=== PATIENT | female | born 1980 | race Caucasian/White ===

== ENCOUNTER → 2016-06-27 | Day surgery (SDC) | payer OTHER ==
--- NOTE | 2016-06-26 17:00 | History & Physical Pre-Op ---
General Information and HPI History of Present Illness: 36-year-old 1 para 2 with impacted On in the left upper extremity here for excision. Allergies/Medications Allergies: Coded Allergies: NO KNOWN ALLERGIES (08/18/15) Home Med list Clonazepam 1 MG TABLET 1 TAB PO QPMP PRN SLEEP (Reported) Glimepiride 2 MG TABLET 1 TAB PO DAILY DIABETES (Reported) Lisinopril 5 MG TABLET 1 TAB PO DAILY BP (Reported) Metformin HCl 500 MG TABLET 1,000 TAB PO DAILY DIABETES (Reported) Ondansetron (Zofran Odt) 4 MG TAB.RAPDIS 1 TAB PO Q6 PRN NAUSEA Sertraline HCl 100 MG TABLET 2 TAB PO DAILY MENTAL HEALTH (Reported) Sitagliptin Phosphate (Januvia) 100 MG TABLET 1 TAB PO DAILY DIABETES ( Reported) Past History Medical History Neurological: NONE EENT: NONE Cardiovascular: hypertension Respiratory: asthma Gastrointestinal: sbo HERNIA REPAIR Hepatic: NONE Renal: nephrolithiasis Musculoskeletal: NONE Psychiatric: depression, OCD Endocrine: diabetes Blood Disorders: NONE Cancer(s): NONE BUSINESS BANKING OFFICER/Reproductive: NONE History of MRSA: No History of VRE: No History of CDIFF: No Surgical History Pertinent Surgical History: hernia repair-incisional, hernia repair-umbilical, section two hernia repairs Past Family/Social History Family History Relations & Conditions if any FATHER FH: Crohn's disease FH: diverticulitis Psychosocial History Services at Home None Review of Systems Review of Systems Constitutional: Reports: no symptoms. EENTM: Reports: no symptoms. Cardiovascular: Reports: no symptoms. Respiratory: Reports: no symptoms. GI: Reports: no symptoms. Genitourinary: Reports: no symptoms. Musculoskeletal: Reports: no symptoms. Skin: Reports: no symptoms. Neurological/Psychological: Reports: no symptoms. Hematologic/Endocrine: Reports: no symptoms. Immunologic/Allergic: Reports: no symptoms. All Other Systems: Reviewed and Negative Exam & Diagnostic Data Last 24 Hrs of Vital Signs/I&O Vital signs stable Physical Exam: Obese white female HEENT: Normocephalic atraumatic Chest: Clear to auscultation bilaterally Cardiovascular: Normal S1 Abdomen: See soft Extremities no clubbing cyanosis or edema left upper extremity with Palpable Assessment/Plan Assessment/Plan: Impacted nexplanon Excision As Ranked By This Provider Problem List: 1. Encounter for removal of subdermal contraceptive implant
[~2016-06-27] VITALS: Ht 162.6 cm; Wt 129.3 kg
[~2016-06-27] MED LIST: CLONAZEPAM1 M2 PO; FLEXERIL10 MG PO; GLIMEPIRIDE1 M1 PO; GLIMEPIRIDE2 MG PO; HYDROCODONE/ACE1 TA1 PO; JANUVIA100 M1 PO; LISINOPRIL5 M1 PO; LORAZEPAM0.5 MG PO; METFORMIN HCL500 M3 PO; PHENTERMINE H37.5 M1 PO; SERTRALINE HCL100 MG PO; SERTRALINE HYDR50 MG PO; ZOFRAN ODT4 M1 PO
--- NOTE | 2016-07-01 13:09 | Operative Report ---
Operative/Inv Procedure Report Surgery Date: 06/27/16 Name of Procedure: Excision of impacted contraceptive implant Pre-Operative Diagnosis: Impacted contraceptive implant Post-Operative Diagnosis: Same Estimated Blood Loss: scant Surgeon/Mystery Shopper: LETICIA MARCIAL MD Anesthesia: local monitored anesthesi Operative/Procedure Note Note: The patient was brought to the operating room placed on the OR table in the dorsal supine position. With the left arm board. She was given adequate anesthesia and prepped and draped in the usual sterile fashion. The Nexplanon contraceptive implant was easily palpable in the left upper extremity. It was injected with 1% lidocaine with epinephrine and a stab incision was made with a #11 blade. Oozing manual palpation and mosquito forceps the tip of the Nexplanon implant was grasped and the and the fibrous capsules surrounding it was excised. The implant was then removed intact. Sent to pathology. Consents recovery in good condition. All needle, sponge, and instrument counts correct at the end of the procedure 2.
== END ==
LOC: STS 03:47
DX: Z30.49 Encounter for surveillance of other contraceptives (principal); I10 Essential (primary) hypertension; E11.9 Type 2 diabetes mellitus without complications; Z79.84 Long term (current) use of oral hypoglycemic drugs
CPT/HCPCS: 81025; J0690; J1885; J2250

== ENCOUNTER 2017-08-08 01:20 | Inpatient (IN) | payer OTHER ==
[~2017-08-08] VITALS: Ht 162.6 cm; Wt 127.0 kg
[~2017-08-08 01:20] MED LIST changes: +BIOTIN5000 MC1 PO; +LEXAPRO20 M1 PO; +MONTELUKAST SOD10 M1 PO; +PROAIR HFA8.5 GM INH; +PROTONIX40 M3 PO
--- NOTE | 2017-08-08 11:04 | Operative Report ---
Operative/Inv Procedure Report Surgery Date: 08/08/17 Name of Procedure: Morbid obesity Pre-Operative Diagnosis: Morbid obesity Post-Operative Diagnosis: Same Estimated Blood Loss: less than 20 mL Surgeon/Print Inspector: Rina SILVEIRA,Tommy RON Anesthesia: general endotracheal tube, block Monitors: na IV Fluids: LR Implants: none Urine Output: na Drains: none Specimens: portion of stomach Complications: none Condition: stable Operative Indication: see admission H and P Operative/Procedure Note Note: After informed consent and proper identification the patient was taken the operating room placed on the operating room in the supine position, a timeout was performed. Sequential compression devices were applied to both lower extremities The patient underwent a general endotracheal anesthetic. Anesthesia performed a KETTY Block the abdomen was then prepped and draped in normal sterile fashion. We entered the abdominal cavity through a 1 cm incision left upper quadrant using a 5 mm [employer] Optiview trocar and a 0 Stortz 5 mm laparoscope upon entering the abdomen insufflated with 14 mm of CO2 pressure we then placed a 5 mm trocar in the left subcostal margin we then exchanged the 5 mm entrance trocar to a 12 mm trocar and the use a [address] it in the right subcostal margin. We placed a 15 mm trocar in the right midabdomen just lateral to the umbilicus. We placed a Tavia liver retractor in the upper midline to retract the left lobe of the liver. The liver was larger than expected for a patient who should be on her preop diet but it was smooth and glistening and it retracted nicely out of the way with a Tavia retractor was no evidence of a hiatal hernia anesthesia decompress the stomach with an orogastric tube nicely and then remove the orogastric tube for us using a ultrasonic scalpel we divided the vasculature along the greater curvature of the stomach opposite the angularis all the way up to the angle his the retrogastric space had very few adhesions that were taken down where careful not to injure the pancreas or the splenic vessels which were very well visualized. Next we had anesthesia place a 38 Sami bougie and using this as a guide we used a stapler to perform the sleeve starting approximately 6 cm from the pylorus opposite the angularis we used a completely and hand held stapler with a 60 cm black load cartridges seam guard for the first firing the we then fired an additional 60 cm black load cartridges seam guard followed by 3 purple 60 cm cartridges with seam guard the remnant stomach was then removed in a Covidean 15 mm Endo Catch bag through the 15 mm port. The liver retractor and bougie were removed. No sponges were placed in the abdominal cavity. Sponge and instrument counts were correct all trochars were removed the portion of stomach was sent to pathology specimen skin incisions were closed with 4-0 Monocryl subcuticular stitches and skin glue patient tolerated the procedure without complications was taken the recovery room in stable condition Findings: fatty liver no evidence of hiatal hernia Discharge Disposition: PACU
--- NOTE | 2017-08-08 13:38 | PN- Bariatrics ---
Subjective Subjective: POC No events noted in PACU. Patient's main complaint is nausea, no emesis. Denies any chest pain or SOB. Admits to mild gas pain. Has voided since surgery. Is currently OOB to chair. Objective Vital Signs and I&Os Afebrile, VSS. Physical Exam: Afebrile, VSS. Cardiac: RRR Pulmonary: CTAB Abdominal: Incisions c/d/i, skin glue in place. + hypoactive BS, soft, obese, minimal incisional tenderness to palpation. Assessment/Plan Assessment/Plan 37 y/o female w/ PMHx of HTN and DM POD # 0 s/p laparoscopic sleeve gastrectomy, stable. - Bariatric stage 1 diet - Pain control and antiemetics prn - Encourage OOB/IS/ambulation - DVT ppx - ALPs, HSQ - NPO after midnight, will evaluate in am if needs UGI, if not will resume Olaf stage 1 in am Core Measures Venous Thromboembolism VTE Risk Factors Surgery No Mechanical VTE Prophylaxis d/t N/A MechProphylax Ordered No VTE Pharm Prophylaxis d/t NA PharmProphylax ordered
[2017-08-08 17:02] VITALS: BP 150/110
[2017-08-08 21:21] VITALS: BP 152/94
[2017-08-09 06:34] VITALS: BP 150/84
--- NOTE | 2017-08-09 08:02 | PN- Bariatrics ---
Subjective Subjective: PONV reported, has resolved. Pt feeling hunger presently. Has been oob ambulating. Denies chest pain, sob, difficulty breathing. Has been voiding. Was npo for possible upper gi, is requesting water. Objective Vital Signs and I&Os Vital Signs Date Time Temp Pulse Resp B/P B/P Pulse O2 O2 Flow FiO2 Mean Ox Delivery Rate 08/09 0634 98.3 105 20 150/84 98 CPAP 08/09 0000 CPAP 08/08 2121 98.3 99 18 152/94 96 BIPAP 08/08 1821 106 150/110 08/08 1800 95 Room Air 08/08 1702 98.3 106 18 150/110 98 Room Air 08/08 1400 94 Room Air Intake & Output 08/09 0800 08/09 0000 08/08 1600 08/08 0800 08/08 0000 08/07 1600 Intake Total 800 1180 710 Output Total 3400 750 870 Balance -2600 430 -160 Intake, IV 800 1000 350 Intake, Oral 0 180 360 Number 0 0 Bowel Movements Output, 20 Emesis Output, Urine 3400 750 850 Patient 280 lb Weight Weight Reported by Patient Measurement Method Physical Exam: Gen: AAO x3, no acute distress Card: RRR, s1s2 Pulm: CTA bialterally, non-labored respiratory effort Redness noted under bialteral eyes, chest and back. Abd: non-tender, softly distended, incisions intact with demabond, no surrounding erythema Extremities: moves all extremities, distal sensation intact. Bilateral calves soft and non-tender Assessment/Plan Assessment/Plan POD 1 s/p lap sleeve, some ponv, resolved -proceed with bariatric stage one this am -follow up cbc -if not tolerating diet, or if cbc anemic, will order upper gi -OOB, ambulation encouraged -Hep sq for dvt ppx, alps -benadryl x1 dose for redness -Will dc iv fluids when tolerating adequate po Core Measures Venous Thromboembolism VTE Risk Factors Surgery No Mechanical VTE Prophylaxis d/t N/A MechProphylax Ordered No VTE Pharm Prophylaxis d/t NA PharmProphylax ordered
[2017-08-09 08:17] LABS: ABSOLUTE BASOPHIL COUNT 0 /CUMM (0.0-0.2); ABSOLUTE EOSINOPHIL COUNT 0 /CUMM (0.0-0.7); ABSOLUTE GRANULOCYTE CT 9.3 /CUMM (1.4-6.5); ABSOLUTE LYMPH COUNT 1.7 /CUMM (1.2-3.4); ABSOLUTE MONOCYTE COUNT 0.8 /CUMM (0.10-0.60); BASOPHIL % 0.2 % (0.0-2.0); EOSINOPHIL % 0.2 % (0-5); GRANULOCYTE % 77.9 % (42.2-75.2); HEMATOCRIT 39.4 % (37-47); MEAN CORPUSCULAR HGB 26.7 PG (27.0-31.0); MEAN CORPUSCULAR HGB CONC 33.8 G/DL (33.0-37.0); MEAN CORPUSCULAR VOLUME 78.9 FL (81.0-99.0); MEAN PLATELET VOLUME 9.1 FL (7.4-10.4); PLATELET COUNT 267 /CUMM (130-400); RBC DISTRIBUTION WIDTH 14.4 % (11.5-14.5); RED BLOOD CELL CT 4.99 /CUMM (4.20-5.40); WHITE BLOOD CELL COUNT 11.9 /CUMM (4.8-10.8)
--- NOTE | 2017-08-09 11:22 | Surg Short-stay <48hrs Dis Sum ---
Visit Information Visit Dates Admission Date: 08/08/17 Discharge Date: 08/10/17 Surgical Short Stay DC Summary Admission Diagnosis: Morbid obesity Final Diagnosis: same as above, s/p laparoscopic sleeve gastrectomy (08/08/17) Procedure(s): Laparoscopic sleeve gastrectomy (08/08/17) Summary/Significant Findings: Electively scheduled laparoscopic sleeve gastrectomy by Dr.Craig Flynn on . Started on a stage 1 diet post-operatively. She experiened post-operative nausea, and small bloody emesis that visually looked consistent with expected old blood likely from staple line intra-luminal bleeding that has likely stopped. She has had stable serial labs, without symptoms of anemia. She has been given zofran periodically for nausea. An upper GI study was done on post-op day#1 to rule out leak and obstruction. Otherwise a red sunburn-similar rash was noted on her upper torso and arms on post-op day#1, which did not improve after benadryl. After reviewing her medications administered with the inpatient pharmacist, it was felt to be most likely secondary to the iv morphine administered the night before. At that time, the morphine was discontinued. Hydrocortisone cream and a one time dose of decadron iv was ordered following unimprovement with bendaryl. Prior to discharge home, she proved to be tolerating stage 1 diet and pain controlled, with improvement / resolution of her truncal rash. Condition at Discharge: stable Discharge Disposition: home or self care Discharge instructions provided to patient/family: Yes Post discharge follow-up plan: one week follow up with Dr.Craig Flnyn Copies to: Mireille SILVEIRA,Radha Melendrez
[2017-08-09] MEDS ORDERED: PERCOCET 5-3251 EACH PO (11:39)
[2017-08-09] MEDS ORDERED: PROTONIX40 M3 PO (11:39)
--- NOTE | 2017-08-09 11:49 | Patient Discharge Instructions ---
Discharge Instructions General Discharge Information You were seen/treated for: Morbid obesity You had these procedures: laparoscopic sleeve gastrectomy (08/09/17) Watch for these problems: fever>101.3, increased pain, redness/swelling/drainage, shortness of breath, chest pains, dizziness Daily wet to dry dressings: Yes No bath, but you may shower: Yes Other wound care: ok to remove outer dressings. leave white steri strips in place. keep incisions clean & dry. Diet Continue normal diet: No Recommended Diet: Bariatric Additional DIET Information: weekly bariatric stage diet advancements as directed, as tolerated Activity Full Activity/No Limits: No Activity Self Limited: Yes Pounds, do NOT lift more than: 10 Other activity limits: no heavy lifting. no strenuous activity. Additional ACTIVITY Info: walk frequently Acute Coronary Syndrome Inclusion Criteria At DC or during hospital stay patient has or had the following: ACS DIAGNOSIS No Discharge Core Measures Meds if any: Prescribed or Continued at Discharge Meds if any: NOT Prescribed or Continued at Discharge Congestive Heart Failure Inclusion Criteria At DC or during hospital stay patient has or had the following: CHF DIAGNOSIS No Discharge Core Measures Meds if any: Prescribed or Continued at Discharge Meds if any: NOT Prescribed or Continued at Discharge Cerebrovascular accident Inclusion Criteria At DC or during hospital stay patient has or had the following: CVA/TIA Diagnosis No Discharge Core Measures Meds if any: Prescribed or Continued at Discharge Meds if any: NOT Prescribed or Continued at Discharge Venous thromboembolism Inclusion Criteria VTE Diagnosis No VTE Type NONE VTE Confirmed by (Test) NONE Discharge Core Measures - Per Current guidelines, there needs to be overlap - treatment for the first 5 days of Warfarin therapy. - If discharged on Warfarin prior to 5 days of - overlap therapy, the patient will need to be - assessed for post discharge needs including - *Post discharge parental anticoagulation - *Warfarin and/or parental anticoagulation education - *Follow up date to check INR post discharge At least 5 days overlap therapy as Inpatient No Meds if any: Prescribed or Continued at Discharge Note: Overlap Therapy is Warfarin and Anticoagulant Meds if any: NOT Prescribed or Continued at Discharge
--- NOTE | 2017-08-09 13:48 | RADIOLOGY REPORT ---
EXAMINATION: FL UPPER GI SERIES CLINICAL INFORMATION: Status post sleeve gastrectomy with postoperative vomiting. Evaluate for bowel obstruction or contrast leakage. COMPARISON: None TECHNIQUE: Upper gastrointestinal series was performed with oral intake of 30 mL of Gastroview contrast material. The patient ingested low density barium without difficulty and was evaluated in the upright and recumbent positions. FLUOROSCOPY TIME: 19 seconds NUMBER OF IMAGES: 11 images FINDINGS: After oral intake of 30 mL of Gastroview contrast material, there was no delay in passage of contrast through the esophagus and into the stomach, which had the expected configuration after sleeve gastrectomy. Also, there was no significant delay in passage of contrast into the normal, nondilated duodenum. No evidence of a fixed filling defect, mucosal thickening, upper gastrointestinal tract obstruction or contrast leakage. IMPRESSION: Normal postoperative appearance after sleeve gastrectomy. No evidence of contrast leakage, gastric outlet obstruction or proximal small bowel obstruction.
[2017-08-09 14:40] VITALS: BP 132/82
[2017-08-09 21:47] VITALS: BP 152/90
[2017-08-10 06:52] VITALS: BP 138/78
[2017-08-10 09:15] LABS: ABSOLUTE BASOPHIL COUNT 0 /CUMM (0.0-0.2); ABSOLUTE EOSINOPHIL COUNT 0.1 /CUMM (0.0-0.7); ABSOLUTE GRANULOCYTE CT 7.3 /CUMM (1.4-6.5); ABSOLUTE LYMPH COUNT 2.1 /CUMM (1.2-3.4); ABSOLUTE MONOCYTE COUNT 0.7 /CUMM (0.10-0.60); BASOPHIL % 0.3 % (0.0-2.0); EOSINOPHIL % 0.5 % (0-5); GRANULOCYTE % 71.9 % (42.2-75.2); HEMATOCRIT 37.8 % (37-47); MEAN CORPUSCULAR HGB 26.6 PG (27.0-31.0); MEAN CORPUSCULAR HGB CONC 34.1 G/DL (33.0-37.0); MEAN PLATELET VOLUME 8.7 FL (7.4-10.4); PLATELET COUNT 262 /CUMM (130-400); RBC DISTRIBUTION WIDTH 14.7 % (11.5-14.5); RED BLOOD CELL CT 4.85 /CUMM (4.20-5.40); WHITE BLOOD CELL COUNT 10.2 /CUMM (4.8-10.8)
--- NOTE | 2017-08-10 11:48 | PN- General Surgery ---
Subjective Subjective: E7-year-old female is postop day 2 of laparoscopic sleeve procedure. She attempted to have breakfast this morning stage I and had dry heaves and vomited. She denies any chest pain shortness of breath and her abdominal pain is controlled. No BMs yet Objective Vital Signs and I&Os Vital Signs Date Time Temp Pulse Resp B/P B/P Pulse O2 O2 Flow FiO2 Mean Ox Delivery Rate 08/10 0800 100 Room Air 08/10 0652 99.0 68 20 138/78 100 08/10 0600 Room Air 08/09 2200 96 Room Air 08/09 2147 98.6 104 20 152/90 96 Room Air 08/09 1440 99.2 90 18 132/82 100 08/09 1400 98 Room Air Intake & Output 08/10 1600 08/10 0800 08/10 0000 08/09 1600 08/09 0800 08/09 0000 Intake Total 690 6397 536 1433 1620 Output Total 715 1201 2450 3400 1270 Balance -25 -121 -1630 -2370 350 Intake, IV 600 940 456 9040 1200 Intake, Oral 90 380 120 30 420 Number 1 2 0 Bowel Movements Output, 15 150 20 Emesis Output, Stool 1 400 Output, Urine 700 1200 1900 3400 1250 Physical Exam: Physical examination she is alert and oriented comfortable currently lying in bed Is clear auscultation symmetric without rales rhonchi or wheeze Regular rate rhythm without murmurs rubs gallops Diminishes rounded but soft with positive bowel sounds portal sites are clean dry and intact without evidence of drainage. Legs are without edema and calves are soft Assessment/Plan Assessment/Plan Assessment and plan postop day #2 after laparoscopic sleeve procedure for weight loss patient has had bouts of nausea and vomiting vomiting this morning. Had an upper GI and this is normal. Plan is to discharge her this evening after she has had more by mouth intake. We will evaluate her at that point and if she feels well she will be able to go home Admission Lab Results I reviewed the following labs: Laboratory Tests 08/11 831 Hematology CBC w Diff NO MAN DIFF REQ WBC (4.8 - 10.8 /CUMM) 10.2 RBC (4.20 - 5.40 /CUMM) 4.85 Hgb (12.0 - 16.0 G/DL) 12.9 Hct (37 - 47 %) 37.8 MCV (81.0 - 99.0 FL) 78.0 L MCH (27.0 - 31.0 PG) 26.6 L MCHC (33.0 - 37.0 G/DL) 34.1 RDW (11.5 - 14.5 %) 14.7 H Plt Count (130 - 400 /CUMM) 262 MPV (7.4 - 10.4 FL) 8.7 Gran % (42.2 - 75.2 %) 71.9 Lymphocytes % (20.5 - 51.1 %) 20.4 L Monocytes % (1.7 - 9.3 %) 6.9 Eosinophils % (0 - 5 %) 0.5 Basophils % (0.0 - 2.0 %) 0.3 Absolute Granulocytes (1.4 - 6.5 /CUMM) 7.3 H Absolute Lymphocytes (1.2 - 3.4 /CUMM) 2.1 Absolute Monocytes (0.10 - 0.60 /CUMM) 0.7 H Absolute Eosinophils (0.0 - 0.7 /CUMM) 0.1 Absolute Basophils (0.0 - 0.2 /CUMM) 0 Core Measures Venous Thromboembolism VTE Risk Factors Surgery No Mechanical VTE Prophylaxis d/t N/A MechProphylax Ordered No VTE Pharm Prophylaxis d/t NA PharmProphylax ordered
[2017-08-10 11:55] VITALS: BP 152/90
[2017-08-10 14:42] VITALS: BP 132/90
== END 2017-08-10 19:30 | DRG 403 ==
LOC: 2NB 01:20 → SDA 01:20 → ENRESERV 12:01 → ENTRNSPT 12:21 → EDTRNSPT 12:27 → EDTRNSPTSTS 12:27 → 2NB 12:38 → CMPTRNSPT 12:43 → 2NB 12:45 → ENTRNSPT 08-10 18:55 → ENPENDDIS 08-10 18:55 → EDTRNSPTSTS 08-10 19:19 → EDTRNSPT 08-10 19:19 → CMPTRNSPT 08-10 19:29 → 2NB 08-10 19:30 → CMPTRNSPT 08-10 19:42
PROVIDERS: Physician Assistant; Physician Assistant Surgical
PROC: 0DB64Z3 Excision of Stomach, Percutaneous Endoscopic Approach, Vertical (ICD-10-PCS; principal; 2017-08-08)
PROC: 3E0T3BZ Introduction of Anesthetic Agent into Peripheral Nerves and Plexi, Percutaneous Approach (ICD-10-PCS; 2017-08-08)
DX: E66.01 Morbid (severe) obesity due to excess calories (principal); Z68.42 Body mass index [BMI] 45.0-49.9, adult; E11.9 Type 2 diabetes mellitus without complications; Z79.4 Long term (current) use of insulin; Z79.84 Long term (current) use of oral hypoglycemic drugs; J45.909 Unspecified asthma, uncomplicated; Z87.442 Personal history of urinary calculi; K21.9 Gastro-esophageal reflux disease without esophagitis; G47.33 Obstructive sleep apnea (adult) (pediatric); I10 Essential (primary) hypertension; F32.9 Major depressive disorder, single episode, unspecified
CPT/HCPCS: 2NBP; 36415; 74240; 81025; C9399; J0131; J0690; J1100; J1200; J1630; J1644; J1815; J2405; J3250; J3490

== ENCOUNTER 2017-10-11 22:27 | Inpatient (IN) | payer OTHER ==
[~2017-10-11] VITALS: Ht 162.6 cm; Wt 112.0 kg
[~2017-10-11 22:27] MED LIST changes: +PERCOCET 5-3251 EACH PO
[2017-10-11 23:12] LABS: ABSOLUTE BASOPHIL COUNT 0 /CUMM (0.0-0.2); ABSOLUTE EOSINOPHIL COUNT 0.2 /CUMM (0.0-0.7); ABSOLUTE GRANULOCYTE CT 4.5 /CUMM (1.4-6.5); ABSOLUTE MONOCYTE COUNT 0.6 /CUMM (0.10-0.60); BASOPHIL % 0.5 % (0.0-2.0); EOSINOPHIL % 2.6 % (0-5); GRANULOCYTE % 53.8 % (42.2-75.2); HEMATOCRIT 39.8 % (37-47); MEAN CORPUSCULAR HGB 26.4 PG (27.0-31.0); MEAN CORPUSCULAR HGB CONC 33.6 G/DL (33.0-37.0); MEAN CORPUSCULAR VOLUME 78.7 FL (81.0-99.0); MEAN PLATELET VOLUME 10.2 FL (7.4-10.4); PLATELET COUNT 178 /CUMM (130-400); RBC DISTRIBUTION WIDTH 13.9 % (11.5-14.5); RED BLOOD CELL CT 5.05 /CUMM (4.20-5.40); WHITE BLOOD CELL COUNT 8.3 /CUMM (4.8-10.8)
--- NOTE | 2017-10-11 23:21 | ED GI/GU/ABDOMINAL COMPLAINT ---
History of Present Illness General Chief Complaint: Abdominal Pain/Flank Pain Stated Complaint: PAIN IN ABD, GASTRIC SLEEVE SURG X4 MONTHS AGO Source: patient Exam Limitations: no limitations Vital Signs & Intake/Output Vital Signs & Intake/Output Vital Signs Date Time Temp Pulse Resp B/P B/P Pulse O2 O2 Flow FiO2 Mean Ox Delivery Rate 10/12 0151 88 20 124/68 98 Room Air 10/11 2231 96.8 74 20 165/94 98 Allergies Coded Allergies: No Known Allergies (07/16/17) Reconcile Medications Albuterol Sulfate (Proair Hfa) 90 MCG HFA.AER.AD 2 PUF INH Q4-6 PRN PRN ASTHMA (Reported) Biotin 5,000 MCG TAB.SUBL 1 TAB PO DAILY PREVENT HAIR LOSS (Reported) Escitalopram Oxalate (Lexapro) 20 MG TABLET 1 TAB PO DAILY ANXIETY (Reported) Lisinopril 5 MG TABLET 1 TAB PO DAILY BP (Reported) Montelukast Sodium 10 MG TABLET 1 TAB PO DAILY ALLERGIES (Reported) Oxycodone HCl/Acetaminophen (Percocet 5-325 MG Tablet) 5 MG-325 MG TABLET 1-2 TAB PO Q4-6 PRN PRN pain control tylenol alternatively. do not combine with percocet. Pantoprazole Sodium (Protonix) 40 MG TABLET.DR 1 TAB PO DAILY ulcer risk reduction Triage Note: PER PT ABD "BURNING " ALL DAY GASTRIC SLEEVE 8 WEEKS AGO ALSO DIARRHEA ALL DAY NO PAIN NO VOMITING NO FEVERS Triage Nurses Notes Reviewed? yes ? N Is pt currently ? No Onset: Gradual Duration: hour(s): Timing: single episode today Quality/Severity: burning, moderate Severity Numbers: 7 Location: epigastric HPI: 37-year-old female with history of gastric sleeve procedure for months ago with Dr. Waterman presents to emergency department complaining of epigastric burning pain beginning 2 hours prior to arrival. Patient states that she had been eating Portuguese food and began experiencing epigastric burning pain after she finished eating. Pain has been gradually increasing, currently described as 7/ 10, constant. Pain is associated with nausea and patient is having dry heaving here in the emergency department. Patient has also had 3 episodes of diarrhea since being here in the emergency department. Patient has a history of 2 prior small bowel obstructions. Patient denies fevers, chills, urinary symptoms. (Sonia RON,Jyoti Padmini) Past History Travel History Traveled to [place] past 21 day No Medical History Any Pertinent Medical History? see below for history Neurological: NONE EENT: NONE Cardiovascular: hypertension Respiratory: asthma Gastrointestinal: sbo HERNIA REPAIR Hepatic: NONE Renal: nephrolithiasis Musculoskeletal: NONE Psychiatric: depression, OCD Endocrine: diabetes Blood Disorders: NONE Cancer(s): NONE PRECISION DYER/Reproductive: NONE History of MRSA: No History of VRE: No History of CDIFF: No Influenza Vaccine: 02/24/17 Surgical History Surgical History: hernia repair-incisional, hernia repair-umbilical, section two hernia repairs Psychosocial History Who do you live with Significant Other Services at Home None What is your primary language Icelandic Tobacco Use: Never used Family History Family History, If Any: FATHER FH: Crohn's disease FH: diverticulitis Hx Contributory? No (Jyoti Ngo) Review of Systems Review of Systems Constitutional: Reports: no symptoms. EENTM: Reports: no symptoms. Respiratory: Reports: no symptoms. Cardiovascular: Reports: no symptoms. GI: Reports: see HPI. Genitourinary: Reports: no symptoms. Musculoskeletal: Reports: no symptoms. Skin: Reports: no symptoms. Neurological/Psychological: Reports: no symptoms. Hematologic/Endocrine: Reports: no symptoms. Immunologic/Allergic: Reports: no symptoms. All Other Systems: Reviewed and Negative (Jyoti Ngo) Physical Exam Physical Exam General Appearance: well developed/nourished, no apparent distress, alert, awake , obese Head: atraumatic, normal appearance Eyes: Bilateral: normal appearance. Ears, Nose, Throat, Mouth: hearing grossly normal Neck: normal inspection, supple, full range of motion Respiratory: normal breath sounds, no respiratory distress, lungs clear Cardiovascular: regular rate/rhythm Gastrointestinal: hypoactive bowel sounds, epigastric tenderness, mild shiney erythema of umbilicus Back: normal inspection, normal range of motion Extremities: normal range of motion Neurologic/Psych: awake, alert, oriented x 3 Skin: see erythema of umbilicus as mentioned above Core Measures ACS in differential dx? No Sepsis Present: No Sepsis Focused Exam Completed? No (Jyoti Ngo) Progress Differential Diagnosis: bowel obstruction, gastritis, hernia, peptic ulcer, PUD/ GERD, perforated viscous, SBO Plan of Care: Orders Procedure Date/time Status Admit to inpatient 06/30 0213 Active TROPONIN LEVEL 10/12 2235 Complete LIPASE 10/12 2235 Complete HEPATIC FUNCTION PANEL 10/12 2235 Complete HUMAN BETA HCG SCREEN 10/12 2235 Complete CBC WITHOUT DIFFERENTIAL 10/12 2235 Complete BASIC METABOLIC PANEL 10/12 2235 Complete AMYLASE 10/12 2235 Complete EKG 10/12 2235 Active Current Medications Sig/Obdulio Start time Last Medication Dose Stop Time Status Admin Escitalopram Oxalate 20 MG DAILY 10/12 899 UNVr (Lexapro) Lisinopril 5 MG DAILY 10/12 899 UNVr (Prinivil) Montelukast Sodium 10 MG DAILY 10/12 899 UNVr (Singulair) Pantoprazole Sodium 40 MG DAILY 10/12 899 UNVr (Protonix) Albuterol Sulfate 2 PUF Q4-6 PRN PRN 10/12 214 UNVr (Ventolin) Dexamethasone 8 MG ONCE 10/12 0000 NR (Decadron) 10/12 2359 Laboratory Tests 10/11/17 2250: Anion Gap 10, Estimated GFR > 60, BUN/Creatinine Ratio 21.7, Glucose 128 H, Calcium 9.8, Total Bilirubin 0.4, Direct Bilirubin 0.1, AST 22, ALT 32, Alkaline Phosphatase 58, Troponin I < 0.01, Total Protein 6.9, Albumin 4.3, Amylase 50, Lipase 94, Total Beta HCG NEGATIVE, CBC w Diff NO MAN DIFF REQ, RBC 5.05, MCV 78.7 L, MCH 26.4 L, MCHC 33.6, RDW 13.9, MPV 10.2, Gran % 53.8, Lymphocytes % 35.6, Monocytes % 7.5, Eosinophils % 2.6, Basophils % 0.5, Absolute Granulocytes 4.5, Absolute Lymphocytes 3.0, Absolute Monocytes 0.6, Absolute Eosinophils 0.2, Absolute Basophils 0 Patient is laying in stretcher comfortably following IV pain medications. She states her pain has improved following medications. CT scan shows distal small bowel obstruction. 1:00 AM - spoke with Dr. Dodd regarding these patients abnormal findings. Surgical PA to come evaluate the patient. Spoke with surgical PA who will come to eval. All findings discussed with Dr. Johnson. Diagnostic Imaging: Viewed by Me: CT Scan. Discussed w/RAD: CT Scan. Radiology Impression: PATIENT: LENI IGNACIO PRESENT AGE: 37 PATIENT ACCOUNT NO: [id number] : 80 LOCATION: [facility] ORDERING PHYSICIAN: Jyoti RON SERVICE DATE: 10/11/17 EXAM TYPE: CAT - CT ABD & PELVIS W ORAL & IV CO EXAMINATION: CT ABDOMEN AND PELVIS WITH CONTRAST CLINICAL INFORMATION: Epigastric pain. Several months postop from gastric sleeve procedure. COMPARISON: August 31, 2015. TECHNIQUE: Contiguous axial thin section helical images of the abdomen and pelvis were performed following the administration of oral contrast and 95 mL of intravenous Optiray 320. The data set was reformatted in the coronal and sagittal planes and reviewed on an independent workstation. DLP: 1512 mGy-cm. FINDINGS: The visualized lung bases are clear. The visualized portions of the heart are unremarkable. The liver is of increased size and diffuse decreased attenuation without focal lesions nor intrahepatic biliary ductal dilation. A normal gallbladder is identified. There is no wall thickening or discernible pericholecystic fluid. The pancreas and adrenal glands are unremarkable. The spleen is of normal contour and echogenicity. It is enlarged measuring 18.1 cm in greatest dimension. Both kidneys are of normal size and attenuation without hydronephrosis or nephrolithiasis. Following the administration of IV contrast, prompt symmetric nephrograms are displayed. There is no abdominal free fluid. There is neither mesenteric nor retroperitoneal lymphadenopathy. There are dilated loops of mid to distal small bowel. There is stool present within the distal small bowel. There are decompressed most distal loops of small bowel. Surgical chain sutures are noted about the stomach. There is no pelvic free fluid. The urinary bladder is unremarkable. There is neither pelvic nor inguinal lymphadenopathy. Bone windows: Neither sclerotic nor lytic bone lesions are identified. There are bilateral L5 pars defects with no significant anterior displacement of L5 in relation to S1. IMPRESSION: Distal small bowel obstruction. Hepatic steatosis. Hepatosplenomegaly. Bilateral L5 pars defects. DICTATED BY: Lawrence Wu MD DATE/TIME DICTATED:10/12/1731 ACCESS LIAISON:DUGLAS DATE/TIME TRANSCRIBED:10/12/1731 CONFIDENTIAL, DO NOT COPY WITHOUT APPROPRIATE AUTHORIZATION. <Electronically signed in Other Vendor System> SIGNED BY: Lawrence Wu MD 10/12/170 Initial ED EKG: sinus rhythm @73bpm, nonspecific ST changes (Jyoti Ngo) Departure Departure Disposition: STILL A PATIENT Condition: Stable Clinical Impression Primary Impression: Small bowel obstruction Secondary Impressions: Abdominal pain Qualifiers: Abdominal location: epigastric Qualified Code: R10.13 - Epigastric pain Referrals: Mireille SILVEIRA,Radha Melendrez (PCP/Family) Departure Forms: Customer Survey General Discharge Information (Jyoti Ngo) Admission Note Spoke With: Christiano SILVEIRA,Grant Cao Documentation of Exam: Documentation of any treatments & extenuating circumstances including Concerns Regarding Discharge (functional status, medication knowledge or non-compliance, living conditions, etc.) that warrant an admission rather than observation: pt with small bowel obstruction... merits admission for bowel rest, iv fluids, consider ng tube. PA/PRODUCT SCIENTIST Co-Sign Statement Statement: ED Attending supervision documentation- [x] I saw and evaluated the patient. I have also reviewed all the pertinent lab results and diagnostic results. I agree with the findings and the plan of care as documented in the PA's/PRODUCT SCIENTIST's documentation. [] I have reviewed the ED Record and agree with the PA's/PRODUCT SCIENTIST's documentation. [] Additions or exceptions (if any) to the PAs/PRODUCT SCIENTIST's note and plan are summarized below: [] (Elizabeth SILVEIRA,Holland Ashley) [] (Elizabeth SILVEIRA,Holland Ashley)
--- NOTE | 2017-10-12 00:40 | CT SCAN REPORT ---
EXAMINATION: CT ABDOMEN AND PELVIS WITH CONTRAST CLINICAL INFORMATION: Epigastric pain. Several months postop from gastric sleeve procedure. COMPARISON: August 31, 2015. TECHNIQUE: Contiguous axial thin section helical images of the abdomen and pelvis were performed following the administration of oral contrast and 95 mL of intravenous Optiray 320. The data set was reformatted in the coronal and sagittal planes and reviewed on an independent workstation. DLP: 1512 mGy-cm. FINDINGS: The visualized lung bases are clear. The visualized portions of the heart are unremarkable. The liver is of increased size and diffuse decreased attenuation without focal lesions nor intrahepatic biliary ductal dilation. A normal gallbladder is identified. There is no wall thickening or discernible pericholecystic fluid. The pancreas and adrenal glands are unremarkable. The spleen is of normal contour and echogenicity. It is enlarged measuring 18.1 cm in greatest dimension. Both kidneys are of normal size and attenuation without hydronephrosis or nephrolithiasis. Following the administration of IV contrast, prompt symmetric nephrograms are displayed. There is no abdominal free fluid. There is neither mesenteric nor retroperitoneal lymphadenopathy. There are dilated loops of mid to distal small bowel. There is stool present within the distal small bowel. There are decompressed most distal loops of small bowel. Surgical chain sutures are noted about the stomach. There is no pelvic free fluid. The urinary bladder is unremarkable. There is neither pelvic nor inguinal lymphadenopathy. Bone windows: Neither sclerotic nor lytic bone lesions are identified. There are bilateral L5 pars defects with no significant anterior displacement of L5 in relation to S1. IMPRESSION: Distal small bowel obstruction. Hepatic steatosis. Hepatosplenomegaly. Bilateral L5 pars defects.
[2017-10-12 03:15] VITALS: BP 126/70
[2017-10-12 05:57] VITALS: BP 130/70
--- NOTE | 2017-10-12 09:25 | PN- General Surgery ---
Subjective Subjective: Pt admitted overnight with recurrent sbo This morning feels good although was given morphine earlier Denies feeling bloated, last flatus around 11 pm No pain at all right now Denies nausea currently Objective Vital Signs and I&Os Vital Signs Date Time Temp Pulse Resp B/P B/P Pulse O2 O2 Flow FiO2 Mean Ox Delivery Rate 10/12 0557 98.2 75 18 130/70 95 Room Air 10/12 0315 98.2 84 18 126/70 98 Room Air 10/12 0151 88 20 124/68 98 Room Air 10/11 2231 96.8 74 20 165/94 98 Intake & Output 10/12 1600 10/12 0800 10/12 0000 10/11 1600 10/11 0800 10/11 0000 Intake Total 920 Output Total 3 Balance 917 Intake, IV 920 Output, 3 Emesis Patient 247 lb Weight Weight Bed scale Measurement Method Physical Exam: afebrile, vss Abd: soft, good bs in all quadrants, nontender even to deep palpation of all quadrants - feels "pressure in upper abdomen" on palpation but no pain Ext: warm, no edema Current Medications: Current Medications Sig/Obdulio Start time Last Medication Dose Route Stop Time Status Admin Acetaminophen 1,000 MG Q6P PRN 10/12 0230 AC N/A 1 UNIT IV Albuterol Sulfate 2 PUF Q4-6 PRN PRN 10/12 021 AC INH Dexamethasone 8 MG DAILY 10/12 899 DC Dextrose/Water 50 ML IV Dexamethasone 8 MG ONCE 10/12 0000 NR IV 10/12 2359 Dextrose/Sodium 1,000 ML Q10H 10/12 0215 AC 10/12 Chloride IV 0247 Escitalopram Oxalate 20 MG DAILY 10/12 899 AC 10/12 PO 0806 Heparin Sodium 5,000 UNIT Q8 10/12 06 AC (Porcine) SC Lisinopril 5 MG DAILY 10/12 899 AC PO Montelukast Sodium 10 MG DAILY 10/12 09 AC 10/12 PO 08 Morphine Sulfate 4 MG Q4P PRN 10/12 629 AC 10/12 IV 0629 Morphine Sulfate 2 MG Q4P PRN 10/12 629 AC IV Morphine Sulfate 2 MG Q4P PRN 10/12 0230 DC IV Morphine Sulfate 4 MG Q4P PRN 10/12 0215 DC 10/12 IV 0223 Morphine Sulfate 4 MG ONCE ONE 10/11 2330 DC 10/11 IV 10/11 2331 2337 Ondansetron HCl 4 MG Q6P PRN 10/12 0230 AC IV Ondansetron HCl 4 MG ONCE ONE 10/11 2330 DC 10/11 IV 10/11 2331 2337 Pantoprazole Sodium 40 MG DAILY 10/12 0900 AC 10/12 IV 0806 Sodium Chloride 1,000 ML BOLUS ONE 10/12 0115 DC 10/12 IV 10/12 0214 0151 Assessment/Plan Assessment/Plan 37yo female with history of hernia repair with mesh and recent gastric bypass admitted with recurrent sbo no ngt - gastric bypass pt continue npo/ivf for now await bowel function pain management as needed hep sc/alps for dvt ppx Core Measures Venous Thromboembolism VTE Risk Factors Obesity No Mechanical VTE Prophylaxis d/t N/A MechProphylax Ordered No VTE Pharm Prophylaxis d/t NA PharmProphylax ordered
[2017-10-12 14:29] VITALS: BP 114/67
--- NOTE | 2017-10-12 17:14 | RADIOLOGY REPORT ---
EXAMINATION: XR ABDOMEN MULTIPLE VIEWS CLINICAL INDICATION: Small bowel obstruction. For follow up. COMPARISON: CT of the abdomen and pelvis done on 10/11/2017. TECHNIQUE: 2 views, 4 images of the abdomen. FINDINGS: There is no radiopaque contrast visualized within the large bowel. Nonspecific prominent small-bowel loops are, however, noted at left mid to lower abdomen, similar to prior CT study. Significant fecal residual is noted within the large bowel. There is no free intraperitoneal air present. IMPRESSION: No radiopaque contrast is visualized within the large bowel. Prominent small-bowel loops are noted at left mid to lower abdomen. No free intraperitoneal air.
--- NOTE | 2017-10-12 17:49 | History & Physical Pre-Op ---
General Information and HPI History of Present Illness: CC:vomiting HPI:37 yo diabetic nonsmoker, with history of vomiting and sm bowel obstruction ever since her , who I saw for the same problem 2 years ago, she got better went home the next day, that time it was peanuts, this time its broccoli, no recent heavy lifting straining constipation or coughing otherwise. She was vomiting in the ER last night but has since stopped feels a little bit better less pain this morning, no flatus, no recent flulike symptoms or fevers, no bleeding per rectum. PFSH and ROS rev and no chngs since E&M at [facility] 08-18-15, unless stated, he just had lap gastric sleeve in July Allergies/Medications Allergies: Coded Allergies: No Known Allergies (07/16/17) Home Med list Albuterol Sulfate (Proair Hfa) 90 MCG HFA.AER.AD 2 PUF INH Q4-6 PRN PRN ASTHMA (Reported) Biotin 5,000 MCG TAB.SUBL 1 TAB PO DAILY PREVENT HAIR LOSS (Reported) Escitalopram Oxalate (Lexapro) 20 MG TABLET 1 TAB PO DAILY ANXIETY (Reported) Lisinopril 5 MG TABLET 1 TAB PO DAILY BP (Reported) Montelukast Sodium 10 MG TABLET 1 TAB PO DAILY ALLERGIES (Reported) Oxycodone HCl/Acetaminophen (Percocet 5-325 MG Tablet) 5 MG-325 MG TABLET 1-2 TAB PO Q4-6 PRN PRN pain control tylenol alternatively. do not combine with percocet. Pantoprazole Sodium (Protonix) 40 MG TABLET. 1 TAB PO DAILY ulcer risk reduction Past History Medical History Blood Transfusion Hx: No Neurological: NONE EENT: ALLERGIES- SEASONAL Cardiovascular: hypertension Respiratory: asthma Gastrointestinal: sbo HERNIA REPAIR Hepatic: NONE Renal: nephrolithiasis Musculoskeletal: NONE Psychiatric: depression, OCD Endocrine: diabetes Blood Disorders: NONE Cancer(s): NONE POWER MARKETER/Reproductive: NONE History of MRSA: No History of VRE: No History of CDIFF: No Isolation History: Standard Influenza Vaccine: 02/24/17 Surgical History Pertinent Surgical History: hernia repair-incisional, hernia repair-umbilical, section two hernia repairs SLEEVE GASTRECTOMY Past Family/Social History Family History Relations & Conditions if any FATHER FH: Crohn's disease FH: diverticulitis Psychosocial History Where Do You Live? Home Services at Home None Smoking Status: Never Smoked Review of Systems Review of Systems: As aboveas abv Exam & Diagnostic Data Last 24 Hrs of Vital Signs/I&O I rev Vital Signs Date Time Temp Pulse Resp B/P B/P Pulse O2 O2 Flow FiO2 Mean Ox Delivery Rate 10/12 1429 98.6 74 16 114/67 94 Room Air 10/12 0557 98.2 75 18 130/70 95 Room Air 10/12 0315 98.2 84 18 126/70 98 Room Air 10/12 0151 88 20 124/68 98 Room Air 10/11 2231 96.8 74 20 165/94 98 I rev Intake & Output 10/12 1600 10/12 0800 10/12 0000 Intake Total 800 920 Output Total 1100 3 Balance -300 917 Intake, IV 800 920 Number 0 Bowel Movements Output, 3 Emesis Output, Urine 1100 Patient 247 lb Weight Weight Bed scale Measurement Method Physical Exam: Constitutional: pleasant, no acute distress, conversant Eyes: sclera anicteric ENMT: ears and nose atraumatic, moist mucous membranes, good dentition, no lip lesions Neck: Supple, trachea is midline, no cervical or supraclavicular adenopathy and no palpable thyromegaly Cardiovascular: S1, S2, no murmurs, no peripheral edema Respiratory: clear to auscultation with normal respiratory effort and no intercostal retractions GI: abdomen really soft, nontender, nondistended,, non-hyperactive bowel sounds no palpable hepatosplenomegaly Extremities / lymphatics: symmetrically warm, free range of motion no peripheral edema, no cervical, supraclavicular, axillary, or inguinal adenopathy Musculoskeletal: Did not evaluate gait and station, no digital cyanosis, good muscle strength and tone no atrophy, motor grossly 5 out of 5 throughout Skin: no jaundice, no rashes warm, nondiaphoretic, no areas of erythema or induration Psychiatric: mood and affect are appropriate and alert and oriented to person place and time Last 24 Hrs of Labs/J Luis: I rev Laboratory Tests 10/12/17 0839: Anion Gap 12, Estimated GFR > 60, BUN/Creatinine Ratio 18.0 10/12/17 0221: Sodium Cancelled, Potassium Cancelled, Chloride Cancelled, Carbon Dioxide Cancelled, Anion Gap Cancelled, BUN Cancelled, Creatinine Cancelled, BUN/ Creatinine Ratio Cancelled 10/11/17 2250: Anion Gap 10, Estimated GFR > 60, BUN/Creatinine Ratio 21.7, Glucose 128 H, Calcium 9.8, Total Bilirubin 0.4, Direct Bilirubin 0.1, AST 22, ALT 32, Alkaline Phosphatase 58, Troponin I < 0.01, Total Protein 6.9, Albumin 4.3, Amylase 50, Lipase 94, Total Beta HCG NEGATIVE, CBC w Diff NO MAN DIFF REQ, RBC 5.05, MCV 78.7 L, MCH 26.4 L, MCHC 33.6, RDW 13.9, MPV 10.2, Gran % 53.8, Lymphocytes % 35.6, Monocytes % 7.5, Eosinophils % 2.6, Basophils % 0.5, Absolute Granulocytes 4.5, Absolute Lymphocytes 3.0, Absolute Monocytes 0.6, Absolute Eosinophils 0.2, Absolute Basophils 0 Assessment/Plan Assessment/Plan: I reviewed the CT scan around them and from the ER earlier and compared to the previous 2 years ago there is a similar area dilated small bowel in the mid anterior abdomen, there is no recurrent ventral hernia Impression is small bowel obstruction presumably from adhesions from prior surgeries, often exacerbated by an unusual meal high in fiber or chewy food, or even straining. In the meantime will treat in routine nonoperative fashion with bowel rest, she has stopped vomiting a while ago so we will hold off with an NG tube for decompression, she may be improving already but continue maintenance IV fluids and for the GI losses, monitor uo, electrolytes, vital signs, serial exams, labs, abdominal x-rays. We'll get a multiview today to see if the oral contrast on the CT scan has progressed into the colon. Presently there are no peritoneal signs, if situation plateaus or worsens, especially if abdominal pain worsens in next 6-12 hours, might need urgent surgical intervention in the interest of bowel viability, but as I explained, most of the time it is not needed. We also discussed when surgery is indicated if this keeps happening. As Ranked By This Provider Problem List: 1. SBO (small bowel obstruction)
[2017-10-12 21:48] LABS: ABSOLUTE BASOPHIL COUNT 0 /CUMM (0.0-0.2); ABSOLUTE EOSINOPHIL COUNT 0 /CUMM (0.0-0.7); ABSOLUTE GRANULOCYTE CT 6.3 /CUMM (1.4-6.5); ABSOLUTE MONOCYTE COUNT 0.6 /CUMM (0.10-0.60); BASOPHIL % 0.3 % (0.0-2.0); EOSINOPHIL % 0.6 % (0-5); GRANULOCYTE % 69.5 % (42.2-75.2); HEMATOCRIT 37.8 % (37-47); MEAN CORPUSCULAR HGB 26.8 PG (27.0-31.0); MEAN CORPUSCULAR HGB CONC 33.8 G/DL (33.0-37.0); MEAN CORPUSCULAR VOLUME 79.3 FL (81.0-99.0); MEAN PLATELET VOLUME 10.5 FL (7.4-10.4); PLATELET COUNT 173 /CUMM (130-400); RBC DISTRIBUTION WIDTH 13.9 % (11.5-14.5); RED BLOOD CELL CT 4.78 /CUMM (4.20-5.40)
[2017-10-12 22:51] VITALS: BP 130/62
[2017-10-13 06:42] VITALS: BP 125/78
--- NOTE | 2017-10-13 09:28 | PN- General Surgery ---
Subjective Subjective: pt sitting in bed, tolerating clears, no nausea or vomiting. Passing lots of flatus, no bm yet ambulating, no abdominal pain Objective Vital Signs and I&Os Vital Signs Date Time Temp Pulse Resp B/P B/P Pulse O2 O2 Flow FiO2 Mean Ox Delivery Rate 10/13 0642 98.5 81 20 125/78 95 Room Air 10/12 2251 98.6 79 18 130/62 97 Room Air 10/12 1429 98.6 74 16 114/67 94 Room Air Intake & Output 10/13 0800 10/13 0000 10/12 1600 10/12 0800 10/12 0000 Intake Total 800 1000 800 920 Output Total 500 1100 3 Balance 300 1000 -300 917 Intake, IV 800 800 800 920 Intake, Oral 200 Number 0 Bowel Movements Output, 3 Emesis Output, Urine 500 1100 Patient 247 lb Weight Weight Bed scale Measurement Method Physical Exam: gen- NAD resp- clear cardiac- RRR abd- obese, +BS, soft, very mildly tender on left side, no gaurding or rebound Current Medications: Current Medications Sig/Obdulio Start time Last Medication Dose Route Stop Time Status Admin Acetaminophen 1,000 MG Q6P PRN 10/12 0230 AC N/A 1 UNIT IV Albuterol Sulfate 2 PUF Q4-6 PRN PRN 10/12 0215 AC INH Dexamethasone 8 MG ONCE 10/12 0000 DC IV 10/12 2359 Dextrose/Sodium 1,000 ML Q10H 10/12 0215 AC 10/13 Chloride IV 0516 Escitalopram Oxalate 20 MG DAILY 10/12 899 AC 10/13 PO 0819 Heparin Sodium 5,000 UNIT Q8 10/12 06 AC (Porcine) SC Lisinopril 5 MG DAILY 10/12 899 AC PO Montelukast Sodium 10 MG DAILY 10/12 09 AC 10/13 PO 0819 Morphine Sulfate 4 MG Q4P PRN 10/12 06 AC 10/12 IV 0629 Morphine Sulfate 2 MG Q4P PRN 10/12 629 AC IV Ondansetron HCl 4 MG Q6P PRN 10/12 0230 AC IV Pantoprazole Sodium 40 MG DAILY 10/12 09 AC 10/13 IV 0819 Results Last 48 Hours of Labs: Laboratory Tests 10/13 10/12 10/12 0808 2045 0839 Chemistry Sodium (137 - 145 mmol/L) Pending 138 Potassium (3.5 - 5.1 mmol/L) Pending 4.3 Chloride (98 - 107 mmol/L) Pending 102 Carbon Dioxide (22 - 30 mmol/L) Pending 24 Anion Gap (5 - 16) Pending 12 BUN (7 - 17 mg/dL) Pending 9 Creatinine (0.5 - 1.0 mg/dL) Pending 0.5 Estimated GFR (>60 ml/min) > 60 BUN/Creatinine Ratio (7 - 25 %) Pending 18.0 Hematology CBC w Diff NO MAN DIFF REQ WBC (4.8 - 10.8 /CUMM) 9.0 RBC (4.20 - 5.40 /CUMM) 4.78 Hgb (12.0 - 16.0 G/DL) 12.8 Hct (37 - 47 %) 37.8 MCV (81.0 - 99.0 FL) 79.3 L MCH (27.0 - 31.0 PG) 26.8 L MCHC (33.0 - 37.0 G/DL) 33.8 RDW (11.5 - 14.5 %) 13.9 Plt Count (130 - 400 /CUMM) 173 MPV (7.4 - 10.4 FL) 10.5 H Gran % (42.2 - 75.2 %) 69.5 Lymphocytes % (20.5 - 51.1 %) 22.6 Monocytes % (1.7 - 9.3 %) 7.0 Eosinophils % (0 - 5 %) 0.6 Basophils % (0.0 - 2.0 %) 0.3 Absolute Granulocytes (1.4 - 6.5 /CUMM) 6.3 Absolute Lymphocytes (1.2 - 3.4 /CUMM) 2.0 Absolute Monocytes (0.10 - 0.60 /CUMM) 0.6 Absolute Eosinophils (0.0 - 0.7 /CUMM) 0 Absolute Basophils (0.0 - 0.2 /CUMM) 0 10/12 10/11 0221 2250 Chemistry Sodium (137 - 145 mmol/L) Cancelled 140 Potassium (3.5 - 5.1 mmol/L) Cancelled 4.0 Chloride (98 - 107 mmol/L) Cancelled 102 Carbon Dioxide (22 - 30 mmol/L) Cancelled 28 Anion Gap (5 - 16) Cancelled 10 BUN (7 - 17 mg/dL) Cancelled 13 Creatinine (0.5 - 1.0 mg/dL) Cancelled 0.6 Estimated GFR (>60 ml/min) > 60 BUN/Creatinine Ratio (7 - 25 %) Cancelled 21.7 Glucose (65 - 99 mg/dL) 128 H Calcium (8.4 - 10.2 mg/dL) 9.8 Total Bilirubin (0.2 - 1.3 mg/dL) 0.4 Direct Bilirubin (< 0.4 mg/dL) 0.1 AST (14 - 36 U/L) 22 ALT (9 - 52 U/L) 32 Alkaline Phosphatase (<127 U/L) 58 Troponin I (< 0.11 ng/ml) < 0.01 Total Protein (6.3 - 8.2 g/dL) 6.9 Albumin (3.5 - 5.0 g/dL) 4.3 Amylase (30 - 110 U/L) 50 Lipase (23 - 300 U/L) 94 Total Beta HCG (NEGATIVE) NEGATIVE Hematology CBC w Diff NO MAN DIFF REQ WBC (4.8 - 10.8 /CUMM) 8.3 RBC (4.20 - 5.40 /CUMM) 5.05 Hgb (12.0 - 16.0 G/DL) 13.4 Hct (37 - 47 %) 39.8 MCV (81.0 - 99.0 FL) 78.7 L MCH (27.0 - 31.0 PG) 26.4 L MCHC (33.0 - 37.0 G/DL) 33.6 RDW (11.5 - 14.5 %) 13.9 Plt Count (130 - 400 /CUMM) 178 MPV (7.4 - 10.4 FL) 10.2 Gran % (42.2 - 75.2 %) 53.8 Lymphocytes % (20.5 - 51.1 %) 35.6 Monocytes % (1.7 - 9.3 %) 7.5 Eosinophils % (0 - 5 %) 2.6 Basophils % (0.0 - 2.0 %) 0.5 Absolute Granulocytes (1.4 - 6.5 /CUMM) 4.5 Absolute Lymphocytes (1.2 - 3.4 /CUMM) 3.0 Absolute Monocytes (0.10 - 0.60 /CUMM) 0.6 Absolute Eosinophils (0.0 - 0.7 /CUMM) 0.2 Absolute Basophils (0.0 - 0.2 /CUMM) 0 Assessment/Plan Assessment/Plan 37yo F with hx of gastric sleeve and umbilical hernia repair w mesh now here with SBO. stable, awaiting full return bowel function, pt is passing gas but no BM yet cont clear liquids for now dvt ppx- hsq fu am labs encourage ambulation will discuss with Dr Rodriguez Core Measures Venous Thromboembolism VTE Risk Factors Obesity No Mechanical VTE Prophylaxis d/t N/A MechProphylax Ordered No VTE Pharm Prophylaxis d/t NA PharmProphylax ordered
--- NOTE | 2017-10-13 12:47 | Patient Discharge Instructions ---
Discharge Instructions General Discharge Information You were seen/treated for: SBO You had these procedures: NONE Watch for these problems: NAUSEA/VOMTING UNABLE TO PASS GAS OR HAVE BOWEL MOVEMENT Diet Recommended Diet: Low Residue Activity Activity Self Limited: Yes Acute Coronary Syndrome Inclusion Criteria At DC or during hospital stay patient has or had the following: ACS DIAGNOSIS No Discharge Core Measures Meds if any: Prescribed or Continued at Discharge Meds if any: NOT Prescribed or Continued at Discharge Congestive Heart Failure Inclusion Criteria At DC or during hospital stay patient has or had the following: CHF DIAGNOSIS No Discharge Core Measures Meds if any: Prescribed or Continued at Discharge Meds if any: NOT Prescribed or Continued at Discharge Cerebrovascular accident Inclusion Criteria At DC or during hospital stay patient has or had the following: CVA/TIA Diagnosis No Discharge Core Measures Meds if any: Prescribed or Continued at Discharge Meds if any: NOT Prescribed or Continued at Discharge Venous thromboembolism Inclusion Criteria VTE Diagnosis No VTE Type NONE VTE Confirmed by (Test) NONE Discharge Core Measures - Per Current guidelines, there needs to be overlap - treatment for the first 5 days of Warfarin therapy. - If discharged on Warfarin prior to 5 days of - overlap therapy, the patient will need to be - assessed for post discharge needs including - *Post discharge parental anticoagulation - *Warfarin and/or parental anticoagulation education - *Follow up date to check INR post discharge At least 5 days overlap therapy as Inpatient No Meds if any: Prescribed or Continued at Discharge Note: Overlap Therapy is Warfarin and Anticoagulant Meds if any: NOT Prescribed or Continued at Discharge
--- NOTE | 2017-10-13 14:03 | Surg Short-stay <48hrs Dis Sum ---
Visit Information Visit Dates Admission Date: 10/12/17 Discharge Date: 10/13/17 Surgical Short Stay DC Summary Admission Diagnosis: Small bowel obstruction Final Diagnosis: Small bowel obstruction Procedure(s): None Summary/Significant Findings: Patient presented to [place] emergency room on October 11, 2017 with complaints of abdominal pain and obstructive symptoms. Patient had a CT while in the ER which showed a distal small bowel obstruction. Patient was admitted and made n.p.o. for bowel rest and had an NG tube placed. Once the patient started passing gas and having bowel movements the NG tube was removed and her diet was slowly advanced as tolerated. Patient was discharged to home with instructions to continue to slowly advance diet as tolerated and follow-up with Dr. Mauro Condition at Discharge: Good Discharge Disposition: home or self care Discharge instructions provided to patient/family: Yes Post discharge follow-up plan: Follow-up with Grant Alvarado MD as needed
--- NOTE | 2017-10-13 14:11 | Discharge Summary ---
Visit Information Visit Dates Admission Date: 10/12/17 Discharge Date: 10/13/2017 Hospital Course Course Attending Physician: Christiano SILVEIRA,Grant Cao Primary Care Physician: Mireille SILVEIRA,Radha Melendrez Hospital Course: Patient admitted yesterday after recurrent small bowel obstruction related to prior surgeries and high-fiber food, she does have a large bowel movement has been passing gas feels much better tolerated clears since trying some fulls right now Vital signs today reviewed afebrile not tachycardic blood pressure 125/78 heart rate 81 temperature 98.5 respirations 20 Constitutional: no acute distress no pain Eyes: sclera anicteric ENMT: moist mucous membranes Cardiovascular: S1-S2 no murmurs no peripheral edema Respiratory: clear to auscultation with normal respiratory effort and no intercostal retractions GI: abdomen soft nontender nondistended Extremities / lymphatics: free range of motion no peripheral edema Skin: no jaundice no rashes warm, nondiaphoretic Psychiatric: mood and affect are appropriate and alert and oriented to person place and time Labs today electrolytes within normal limits no CB C Impression is resolved small bowel obstruction she's done this before I feel she does not need surgical intervention unless this keeps recurring and may be related to her but it appears she's able to control this with diet so she will continue to be very careful and hopefully she can lose weight as well. Allergies: Coded Allergies: No Known Allergies (07/16/17) Disposition Summary Disposition Principal Diagnosis: Small bowel obstruction Additional Diagnosis: None acute Discharge Disposition: home or self care Discharge Instructions General Discharge Information Code Status: Full Code Patient's Diet: Advance as tolerated at home avoid large portions of high-fiber food Patient's Activity: No straining Follow-Up Instructions/Appts: Next week in the office or sooner if symptoms recur Medications at Discharge Discharge Medications: Continue taking these medications: Lisinopril (Lisinopril) 5 MG TABLET 1 Tablet ORAL DAILY Qty = 30 Comments: NOT GIVEN IN HOSPITAL Escitalopram Oxalate (Lexapro) 20 MG TABLET 1 Tablet ORAL DAILY Comments: Last Taken: 10/13/17 Time: 0820 AM Montelukast Sodium (Montelukast Sodium) 10 MG TABLET 1 Tablet ORAL DAILY Comments: Last Taken: 10/13/17 Time: 0820 AM Albuterol Sulfate (Proair Hfa) 90 MCG HFA.AER.AD 2 Puff Inhale through mouth EVERY 4-6 HOURS NEEDED as needed for ASTHMA Comments: NOT GIVEN IN HOSPITAL Biotin (Biotin) 5,000 MCG TAB.SUBL 1 Tablet ORAL DAILY Comments: NOT GIVEN IN HOSPITAL Pantoprazole Sodium (Protonix) 40 MG TABLET.DR 1 Tablet ORAL DAILY Qty = 30 Comments: Last Taken: 10/13/17 TiME: 0820 AM Oxycodone HCl/Acetaminophen (Percocet 5-325 MG Tablet) 5 MG-325 MG TABLET 1-2 Tablet ORAL EVERY 4-6 HOURS NEEDED as needed for pain control Qty = 36 Instructions: tylenol alternatively. do not combine with percocet. Comments: NOT GIVEN IN HOSPITAL Copies To: Christiano SILVEIRA,Grant Cao
== END 2017-10-13 14:27 | DRG 247 ==
LOC: ERH 22:27 → ERHI 10-12 02:13 → 2NB 10-12 02:13 → ENRESERV 10-12 02:29 → 2NB 10-12 02:54 → ENPENDDIS 10-13 12:49 → 2NB 10-13 14:27
PROVIDERS: Pediatrics; Physician Assistant
DX: K56.50 Intestinal adhesions [bands], unspecified as to partial versus complete obstruction (principal); Z68.41 Body mass index [BMI] 40.0-44.9, adult; J45.909 Unspecified asthma, uncomplicated; I10 Essential (primary) hypertension; E66.9 Obesity, unspecified; E11.9 Type 2 diabetes mellitus without complications; Z98.890 Other specified postprocedural states; Z98.84 Bariatric surgery status
CPT/HCPCS: 2NBSP; 36415; 36592; 74021; 74177; 82436; 93005; 93010; 96374; 96375; J0131; J1100; J1644; J2405; J3490; J7042